=== PATIENT | female | born 1990 | race American Indian/Alaskan Native ===

== ENCOUNTER 2019-01-12 07:53 | Emergency (ER) | payer OTHER ==
[2019-01-12 07:56] VITALS: BP 135/82
[2019-01-12] MEDS ORDERED: LET TOPICAL TP ONE (08:58)
[2019-01-12] MEDS ORDERED: XYLOCAINE 1% 20 mL INFILTRATI ONE (08:59)
[2019-01-12] MEDS ORDERED: TYLENOL PO ONE (09:09)
--- NOTE | 2019-01-12 11:19 | Emergency Department Report ---
ED General Adult HPI - General Chief complaint: Fall Stated complaint: FACE INJURY Time Seen by Provider: 01/12/19 08:47 Source: patient Mode of arrival: Ambulatory Limitations: No Limitations - History of Present Illness Initial comments: The patient presents to the ED for a facial laceration. The patient states she slipped on some hair in the bathroom following onto outstretched arms initially and then hitting her face on the bathroom counter.Patient denies LOC -: Sudden Location: face Radiation: non-radiation Severity scale (0 -10): 2 Quality: aching Consistency: constant Improves with: none Worsens with: none Associated Symptoms: denies other symptoms Treatments Prior to Arrival: none - Related Data Previous Rx's Medication Instructions Recorded Last Taken Type Acetaminophen/Codeine [Tylenol 1 tab PO Q6H PRN #15 tab 01/12/19 Unknown Rx /Codeine # 3 tab] Amoxicillin/Potassium Clav 1 each PO BID #14 tablet 01/12/19 Unknown Rx [Augmentin 875-125 Tablet] Allergies Allergy/AdvReac Type Severity Reaction Status Date / Time No Known Allergies Allergy Unverified 01/12/19 07:53 ED Review of Systems ROS: Stated complaint: FACE INJURY Other details as noted in HPI Comment: All other systems reviewed and negative (all of the) Constitutional: denies: chills, fever Eyes: denies: eye pain, eye discharge, vision change ENT: other. denies: ear pain, throat pain Respiratory: denies: cough, shortness of breath, wheezing Cardiovascular: denies: chest pain, palpitations Endocrine: no symptoms reported Gastrointestinal: denies: abdominal pain, nausea, diarrhea Genitourinary: denies: urgency, dysuria, discharge Musculoskeletal: denies: back pain, joint swelling, arthralgia Skin: denies: rash, lesions Neurological: denies: headache, weakness, paresthesias Psychiatric: denies: anxiety, depression Hematological/Lymphatic: denies: easy bleeding, easy bruising ED Past Medical Hx - Past Medical History Hx Psychiatric Treatment: Yes (anxiety) - Surgical History Additional Surgical History: hernia - Social History Smoking Status: Never Smoker Substance Use Type: None - Medications Home Medications: Home Medications Medication Instructions Recorded Confirmed Last Taken Type Acetaminophen/Codeine [Tylenol 1 tab PO Q6H PRN #15 tab 01/12/19 Unknown Rx /Codeine # 3 tab] Amoxicillin/Potassium Clav 1 each PO BID #14 tablet 01/12/19 Unknown Rx [Augmentin 875-125 Tablet] ED Physical Exam - General Limitations: No Limitations General appearance: alert, in no apparent distress - Head Head exam: Present: normocephalic - Eye Eye exam: Present: normal appearance - ENT ENT exam: Present: mucous membranes moist, other (laceration 5 cm of left infraorbital region, laceration of the left nasal nare ) - Neck Neck exam: Present: normal inspection - Respiratory Respiratory exam: Present: normal lung sounds bilaterally. Absent: respiratory distress - Cardiovascular Cardiovascular Exam: Present: regular rate, normal rhythm. Absent: systolic murmur, diastolic murmur, rubs, gallop - GI/Abdominal GI/Abdominal exam: Present: soft, normal bowel sounds. Absent: distended, tenderness - Extremities Exam Extremities exam: Present: normal inspection - Back Exam Back exam: Present: normal inspection - Neurological Exam Neurological exam: Present: alert, oriented X3, CN II-XII intact. Absent: motor sensory deficit - Psychiatric Psychiatric exam: Present: normal affect, normal mood - Skin Skin exam: Present: warm, dry, intact, normal color. Absent: rash ED Course Vital Signs 01/12/19 07:53 Temperature 97.9 F Pulse Rate 116 H Respiratory 24 Rate Blood Pressure 135/82 O2 Sat by Pulse 100 Oximetry - Laceration /Wound Repair Left Nose Wound Location: face Wound Length (cm): 5 (1 cm laceration of left nasal fold) Wound's Depth, Shape: superficial Wound Explored: no foreign body removed Irrigated w/ Saline (ccs): 200 Betadine Prep?: Yes Anesthesia: 1% Lidocaine Volume Anesthetic (ccs): 5 Wound Repaired With: sutures Suture Size/Type: 5:0 Number of Sutures: 7 (3 sutures prolene of left nasal fold) Layer Closure?: No Sterile Dressing Applied?: Yes ED Medical Decision Making - Medical Decision Making Plan of care discussed with patient Critical care attestation.: If time is entered above; I have spent that time in minutes in the direct care of this critically ill patient, excluding procedure time. ED Disposition Clinical Impression: Facial laceration, Nasal laceration Disposition: TO HOME OR SELFCARE Is pt being admited?: No Does the pt Need Aspirin: No Condition: Stable Instructions: Laceration (ED) Additional Instructions: return if worse Prescriptions: Amoxicillin/Potassium Clav [Augmentin 875-125 Tablet] 1 each PO BID #14 tablet Acetaminophen/Codeine [Tylenol /Codeine # 3 tab] 1 tab PO Q6H PRN #15 tab PRN Reason: pain Referrals: KIAN HUGO MD [Primary Care Provider] - 3-5 Days BRIANNA DANIEL MD [Staff Physician] - 3-5 Days DEN IRWIN MD [Staff Physician] - 3-5 Days Time of Disposition: 11:26
== END 2019-01-12 11:53 | disposition home or self-care (01) ==
LOC: ED 07:53
DX: S05.42XA Penetrating wound of orbit with or without foreign body, left eye, initial encounter (principal); S01.21XA Laceration without foreign body of nose, initial encounter; W18.12XA Fall from or off toilet with subsequent striking against object, initial encounter; Y93.89 Activity, other specified; Y92.091 Bathroom in other non-institutional residence as the place of occurrence of the external cause; Y99.8 Other external cause status